=== PATIENT | female | born 1980 | race Caucasian/White ===

== ENCOUNTER 2024-06-30 15:06 | Emergency (ER) | payer BC ==
[~2024-06-30] VITALS: Ht 167.6 cm; Wt 87.7 kg
[2024-06-30 15:39] VITALS: TEMP 97.9
[2024-06-30 16:21] LABS: BASOPHILS # (AUTO) 0.1 X10'3 (0-0.2); EOSINOPHILS # (AUTO) 0.2 X10'3 (0-0.9); HEMATOCRIT 42.2 % (35.0-45.0); HEMOGLOBIN 14.6 g/dl (12.0-16.0); LYMPHOCYTES # (AUTO) 1.7 X10'3 (1.1-4.8); LYMPHOCYTES % (AUTO) 16.1 % (21-51); MEAN CORPUSCULAR HEMOGLOBIN 29.4 PG (27.0-31.0); MEAN CORPUSCULAR HGB CONC 34.6 g/dL (33.0-36.5); MEAN CORPUSCULAR VOLUME 84.9 FL (78-98); MEAN PLATELET VOLUME 6.9 FL (7.4-10.4); MONOCYTES # (AUTO) 0.6 X10'3 (0-0.9); MONOCYTES % (AUTO) 5.5 % (2-12); NEUTROPHILS # (AUTO) 7.9 X10'3 (1.8-7.7); NEUTROPHILS % (AUTO) 75.4 % (42-75); PLATELET COUNT 346 X10'3 (140-440); RED BLOOD COUNT 4.98 X10'6 (4.20-5.60); RED CELL DISTRIBUTION WIDTH 12.7 % (11.5-14.5); WHITE BLOOD COUNT 10.4 X10'3 (4.5-11.0)
[2024-06-30 16:38] LABS: ALANINE AMINOTRANSFERASE 85 U/L (12-78); ALBUMIN/GLOBULIN RATIO 1.1 (1.1-1.5); ALKALINE PHOSPHATASE 209 IU/L (46-116); ANION GAP 5 (8-16); ASPARTATE AMINO TRANSFERASE 109 U/L (10-37); BILIRUBIN,TOTAL 0.9 MG/DL (0.1-1.0); BLOOD UREA NITROGEN 12 MG/DL (7-18); BUN/CREATININE RATIO 17.9 (10.0-20.0); CALCIUM 8.9 MG/DL (8.5-10.1); CHLORIDE 101 MMOL/L (99-107); CREATININE 0.67 MG/DL (0.40-0.90); GLUCOSE 146 MG/DL (70-104); LIPASE 50 U/L (16-77); SODIUM 138 MMOL/L (135-145); TOTAL CARBON DIOXIDE 31.6 MMOL/L (24-32); TOTAL PROTEIN 7.7 G/DL (6.4-8.2); eCRCL 102 ML/MIN; eGFR > 90 ML/MIN
[2024-06-30 16:59] LABS: BILIRUBIN,URINE NEGATIVE (Neg); CLARITY,URINE CLEAR (Clear); COLOR,URINE YELLOW (Yellow); GLUCOSE, URINE NEGATIVE (Neg); KETONES,URINE NEGATIVE (Neg); LEUKOCYTE ESTERASE ,URINE TRACE (Neg); NITRITES, URINE NEGATIVE (Neg); OCCULT BLOOD,URINE NEGATIVE (Neg); PROTEIN,URINE NEGATIVE (Neg); UROBILINOGEN,URINE 0.2 E.U/dL (0.2-1.0)
[2024-06-30 17:06] LABS: UA COLLECTION TYPE NON-SPECIFIED
[2024-06-30 17:07] LABS: BACTERIA,URINE FEW /HPF (Neg); MUCUS STRANDS MANY /LPF (Neg); SQUAMOUS EPITHELIAL CELL,UR MANY /LPF (FEW); WBC,URINE 0-4 /HPF (0-4)
[2024-06-30 17:38] VITALS: BP 131/78; PULSE 92; RESP 18; O2SAT 98
== END 2024-06-30 17:40 | disposition home or self-care (01) ==
LOC: ER 15:07
DX: K80.20 Calculus of gallbladder without cholecystitis without obstruction (principal)
CPT/HCPCS: 36415; 76700; 80053; 81001; 83690; 85025; 99284

== ENCOUNTER 2024-07-03 20:13 | Inpatient (IN) | payer BC ==
[~2024-07-03] VITALS: Ht 198.1 cm; Wt 85.0 kg
[2024-07-03 21:11] LABS: BASOPHILS # (AUTO) 0.1 X10'3 (0-0.2); BASOPHILS % (AUTO) 0.7 % (0-1); EOSINOPHILS # (AUTO) 0.2 X10'3 (0-0.9); EOSINOPHILS % (AUTO) 3.2 % (0-6); HEMATOCRIT 41.6 % (35.0-45.0); HEMOGLOBIN 14.5 g/dl (12.0-16.0); LYMPHOCYTES # (AUTO) 1.6 X10'3 (1.1-4.8); LYMPHOCYTES % (AUTO) 20.8 % (21-51); MEAN CORPUSCULAR HEMOGLOBIN 29.4 PG (27.0-31.0); MEAN CORPUSCULAR HGB CONC 34.9 g/dL (33.0-36.5); MEAN CORPUSCULAR VOLUME 84.2 FL (78-98); MEAN PLATELET VOLUME 7.3 FL (7.4-10.4); MONOCYTES # (AUTO) 0.5 X10'3 (0-0.9); MONOCYTES % (AUTO) 7.1 % (2-12); NEUTROPHILS # (AUTO) 5.1 X10'3 (1.8-7.7); NEUTROPHILS % (AUTO) 68.2 % (42-75); PLATELET COUNT 328 X10'3 (140-440); RED BLOOD COUNT 4.94 X10'6 (4.20-5.60); RED CELL DISTRIBUTION WIDTH 12.7 % (11.5-14.5); WHITE BLOOD COUNT 7.5 X10'3 (4.5-11.0)
[2024-07-03 21:29] LABS: BILIRUBIN,URINE MODERATE (Neg); CLARITY,URINE SLIGHTLY CLOUDY (Clear); COLOR,URINE YELLOW (Yellow); GLUCOSE, URINE NEGATIVE (Neg); KETONES,URINE TRACE mg/dl (Neg); LEUKOCYTE ESTERASE ,URINE NEGATIVE (Neg); NITRITES, URINE NEGATIVE (Neg); OCCULT BLOOD,URINE NEGATIVE (Neg); PROTEIN,URINE NEGATIVE (Neg)
[2024-07-03 21:30] LABS: UA COLLECTION TYPE CLN CATCH MIDSTREAM
[2024-07-03 21:32] LABS: URINE HCG NEGATIVE (NEG)
[2024-07-03 21:33] LABS: ALANINE AMINOTRANSFERASE 451 U/L (12-78); ALBUMIN 3.8 G/DL (3.4-5.0); ALKALINE PHOSPHATASE 314 IU/L (46-116); ANION GAP 9 (8-16); ASPARTATE AMINO TRANSFERASE 231 U/L (10-37); BILIRUBIN,TOTAL 2.3 MG/DL (0.1-1.0); BLOOD UREA NITROGEN 10 MG/DL (7-18); BUN/CREATININE RATIO 14.9 (10.0-20.0); CALCIUM 9.1 MG/DL (8.5-10.1); CHLORIDE 103 MMOL/L (99-107); CREATININE 0.67 MG/DL (0.40-0.90); GLUCOSE 138 MG/DL (70-104); LIPASE 34 U/L (16-77); POTASSIUM 3.8 MMOL/L (3.5-5.1); SODIUM 138 MMOL/L (135-145); TOTAL CARBON DIOXIDE 26.3 MMOL/L (24-32); TOTAL PROTEIN 7.6 G/DL (6.4-8.2); eCRCL 102 ML/MIN; eGFR > 90 ML/MIN
[2024-07-03 21:35] LABS: BACTERIA,URINE 2+ /HPF (Neg); CAL OXALATE CRYSTALS FEW /HPF (NEGATIVE); RBC,URINE NONE SEEN /HPF (0-2); SQUAMOUS EPITHELIAL CELL,UR MODERATE /LPF (FEW); WBC,URINE 0-4 /HPF (0-4)
[2024-07-03] MEDS ORDERED: morphine 4 MG/ML inj SYRINge IV ONE (22:15)
[2024-07-03] MEDS ORDERED: potassium Cl 20 mEq SR tablet PO PRN ×2 (22:40)
[2024-07-03] MEDS ORDERED: morphine 2 MG/ML inj. syringe IV PRN ×2 (22:40)
[2024-07-03] MEDS ORDERED: acetaminophen 325mg tablet PO PRN (22:40)
[2024-07-03] MEDS ORDERED: magnesium Cl slow-release 64mg tablet PO PRN (22:40)
[2024-07-03] MEDS ORDERED: bisacodyl 10mg suppository rectal RC PRN (22:40)
[2024-07-03] MEDS ORDERED: magnesium sulf-water 4G/100mL 100 ML IV PRN (22:40)
[2024-07-03] MEDS ORDERED: magnesium sulf-water 2g/50mL 50 ML IV PRN (22:40)
[2024-07-03] MEDS ORDERED: HYDROmorphone inj. 0.5 MG/0.5 ML DISP.SYRIN IV PRN (22:40)
[2024-07-03] MEDS ORDERED: potassium Cl 40MEQ/1/2NS 520ml 520 ML IV PRN (22:40)
[2024-07-03] MEDS ORDERED: magnesium hydroxide 30ml (MOM) UD suspension PO PRN (22:40)
[2024-07-03] MEDS ORDERED: mag hydrox/Alum hydrox/simeth 30ml oral suspension PO PRN (22:40)
[2024-07-03 23:03] LABS: APTT 23 SECONDS (22-32); PROTHROMBIN TIME 10.3 SECONDS (9.0-12.0)
[2024-07-03 23:11] LABS: PRO BRAIN NATRIURETIC PEPTIDE 62 PG/ML (0-125)
[2024-07-03] MEDS: normal saline 1000ml 1,000 ML IV ONE (23:23)
[2024-07-03] MEDS: ondansetron/PF 4mg/2ml inj IV ONE (23:29)
[2024-07-03] MEDS: ketorolac trometh 15mg/ml vial 15 MG/ML ML IV ONE (23:32)
[2024-07-03] MEDS: piperacillin/tazo 3.375gm/50ml 50 ML IV ONE (23:34)
[2024-07-04] VITALS (20 sets, daily range): BP systolic 110–145; BP diastolic 62–89; PULSE 57–88; RESP 12–18; TEMP 97.4–98.9; O2SAT 94–99
[2024-07-04] MEDS: normal saline 1000ml 1,000 ML IV SCH (01:50)
[2024-07-04 04:56] LABS: BASOPHILS % (AUTO) 0.9 % (0-1); EOSINOPHILS # (AUTO) 0.3 X10'3 (0-0.9); HEMATOCRIT 40.8 % (35.0-45.0); HEMOGLOBIN 13.8 g/dl (12.0-16.0); LYMPHOCYTES # (AUTO) 1.6 X10'3 (1.1-4.8); MEAN CORPUSCULAR HEMOGLOBIN 28.8 PG (27.0-31.0); MEAN CORPUSCULAR HGB CONC 33.8 g/dL (33.0-36.5); MEAN CORPUSCULAR VOLUME 85.1 FL (78-98); MEAN PLATELET VOLUME 7.3 FL (7.4-10.4); MONOCYTES # (AUTO) 0.5 X10'3 (0-0.9); MONOCYTES % (AUTO) 8.7 % (2-12); NEUTROPHILS # (AUTO) 3.1 X10'3 (1.8-7.7); NEUTROPHILS % (AUTO) 56.4 % (42-75); PLATELET COUNT 302 X10'3 (140-440); RED BLOOD COUNT 4.79 X10'6 (4.20-5.60); RED CELL DISTRIBUTION WIDTH 12.8 % (11.5-14.5); WHITE BLOOD COUNT 5.4 X10'3 (4.5-11.0)
[2024-07-04 05:22] LABS: ALANINE AMINOTRANSFERASE 448 U/L (12-78); ALBUMIN 3.3 G/DL (3.4-5.0); ALKALINE PHOSPHATASE 286 IU/L (46-116); ANION GAP 7 (8-16); ASPARTATE AMINO TRANSFERASE 233 U/L (10-37); BILIRUBIN,TOTAL 2.8 MG/DL (0.1-1.0); BLOOD UREA NITROGEN 9 MG/DL (7-18); BUN/CREATININE RATIO 12.7 (10.0-20.0); CALCIUM 8.3 MG/DL (8.5-10.1); CHLORIDE 106 MMOL/L (99-107); CHOL/HDL RATIO 2.8 (0.00-4.99); CHOLESTEROL 174 MG/DL (0-200); CREATININE 0.71 MG/DL (0.40-0.90); GLUCOSE 111 MG/DL (70-104); HDL CHOLESTEROL 62 MG/DL (35-60); LDL CHOLESTEROL 94 MG/DL (50-100); MAGNESIUM 1.8 MG/DL (1.5-2.4); POTASSIUM 3.8 MMOL/L (3.5-5.1); SODIUM 141 MMOL/L (135-145); TOTAL CARBON DIOXIDE 28.5 MMOL/L (24-32); TOTAL PROTEIN 6.7 G/DL (6.4-8.2); TRIGLYCERIDES 69 MG/DL (20-135); eCRCL 97 ML/MIN; eGFR 90 ML/MIN
[2024-07-04] MEDS: piperacillin/tazo 3.375gm/50ml 50 ML IV SCH (06:20)
[2024-07-04] MEDS: docusate sod 100mg capsule PO SCH (08:00)
[2024-07-04] MEDS: K and/or MAG REPLACEMENT MC SCH (08:00)
[2024-07-04] MEDS: enoxaparin 40mg/0.4ml syringe SUBCUT SCH (08:00)
[2024-07-04] MEDS ORDERED: BUPIVAcaine 2.5mg/ml inj 50ml vial (contains preservative) ONE (12:39)
[2024-07-04] MEDS ORDERED: LIDOcaine 1% 30ml preserv. free vial ONE (12:39)
[2024-07-04] MEDS: INDOCYANINE GREEN 25 MG/10 ML VIAL IV STA (12:49)
[2024-07-04] MEDS: acetaminophen 1,000mg/100ml IV 100 ML IV ONE (12:58)
[2024-07-04] MEDS: ketorolac trometh 30MG/ML vial 30 MG/ML VIAL IV ONE (12:59)
[2024-07-04] MEDS: ringers solution, lacted 1,000 ML IV SCH (13:05)
[2024-07-04] MEDS ORDERED: meperidine/PF 25mg/ml syringe IV PRN ×3 (13:05)
[2024-07-04] MEDS ORDERED: labetalol 20mg/4ml (5mg/ml) syringe IV PRN (13:05)
[2024-07-04] MEDS ORDERED: morphine 2 MG/ML inj. syringe IV PRN (13:05)
[2024-07-04] MEDS ORDERED: enalaprilat 1.25mg/ml 2ml vial IV PRN (13:05)
[2024-07-04] MEDS ORDERED: morphine 4 MG/ML inj SYRINge IV PRN (13:05)
[2024-07-04] MEDS ORDERED: proCHLORperazine 10 MG/2 ml inj IV PRN (13:05)
[2024-07-04] MEDS ORDERED: ondansetron/PF 4mg/2ml inj IV PRN (13:05)
[2024-07-04] MEDS ORDERED: sevoflurane 250ml liquid IH ONE (13:10)
[2024-07-04] MEDS: aprepitant 40mg capsule PO ONE ×2 (13:11)
[2024-07-04] MEDS ORDERED: propofol inj 20 ML IV ONE (13:12)
[2024-07-04] MEDS ORDERED: LIDOcaine 2% (20mg/ml) 5ml vial ONE (13:12)
[2024-07-04] MEDS ORDERED: fentaNYL /PF 50mcg/ml 5ml ampule ONE (13:12)
[2024-07-04] MEDS ORDERED: midazolam 1 mg/ML 2ml injection ONE (13:12)
[2024-07-04] MEDS ORDERED: rocuronium 10mg/ml inj IV ONE (13:32)
[2024-07-04] MEDS ORDERED: ondansetron/PF 4mg/2ml inj ONE (13:33)
[2024-07-04] MEDS: BUPIVAcaine/PF 2.5 mg/ml (0.25%) 30ml vial IJ ONE (14:29)
[2024-07-04] MEDS ORDERED: sugammadex 200mg/2ml injection IV ONE (14:46)
[2024-07-04] MEDS: ondansetron/PF 4mg/2ml inj IV PRN (15:24)
[2024-07-04] MEDS: acetaminophen 325mg tablet PO PRN (18:15)
[2024-07-05 04:49] LABS: BASOPHILS % (AUTO) 0.2 % (0-1); EOSINOPHILS % (AUTO) 0 % (0-6); HEMATOCRIT 39.5 % (35.0-45.0); HEMOGLOBIN 13.5 g/dl (12.0-16.0); LYMPHOCYTES # (AUTO) 0.9 X10'3 (1.1-4.8); LYMPHOCYTES % (AUTO) 7.6 % (21-51); MEAN CORPUSCULAR HEMOGLOBIN 29.1 PG (27.0-31.0); MEAN CORPUSCULAR HGB CONC 34.2 g/dL (33.0-36.5); MEAN CORPUSCULAR VOLUME 85.1 FL (78-98); MEAN PLATELET VOLUME 7.2 FL (7.4-10.4); MONOCYTES # (AUTO) 0.6 X10'3 (0-0.9); MONOCYTES % (AUTO) 4.9 % (2-12); NEUTROPHILS # (AUTO) 10.8 X10'3 (1.8-7.7); NEUTROPHILS % (AUTO) 87.3 % (42-75); PLATELET COUNT 291 X10'3 (140-440); RED BLOOD COUNT 4.64 X10'6 (4.20-5.60); RED CELL DISTRIBUTION WIDTH 12.6 % (11.5-14.5); WHITE BLOOD COUNT 12.4 X10'3 (4.5-11.0)
[2024-07-05 05:03] LABS: ALANINE AMINOTRANSFERASE 304 U/L (12-78); ALBUMIN 2.9 G/DL (3.4-5.0); ALBUMIN/GLOBULIN RATIO 0.9 (1.1-1.5); ALKALINE PHOSPHATASE 254 IU/L (46-116); ANION GAP 7 (8-16); ASPARTATE AMINO TRANSFERASE 71 U/L (10-37); BILIRUBIN,TOTAL 0.7 MG/DL (0.1-1.0); BLOOD UREA NITROGEN 9 MG/DL (7-18); BUN/CREATININE RATIO 15.5 (10.0-20.0); CALCIUM 8.1 MG/DL (8.5-10.1); CHLORIDE 106 MMOL/L (99-107); CREATININE 0.58 MG/DL (0.40-0.90); GLUCOSE 163 MG/DL (70-104); MAGNESIUM 1.8 MG/DL (1.5-2.4); POTASSIUM 4.1 MMOL/L (3.5-5.1); SODIUM 139 MMOL/L (135-145); TOTAL CARBON DIOXIDE 25.9 MMOL/L (24-32); TOTAL PROTEIN 6.3 G/DL (6.4-8.2); eCRCL 170 ML/MIN; eGFR > 90 ML/MIN
[2024-07-05 06:00] VITALS: BP 124/74; PULSE 83; RESP 18; TEMP 97.5; O2SAT 96
[2024-07-05 10:00] VITALS: BP 137/97; PULSE 90; RESP 18; TEMP 98; O2SAT 100
== END 2024-07-05 14:30 | disposition home or self-care (01) | DRG 419 ==
LOC: ER 20:14 → ED HOLD 22:47 → UNDOADMIN 23:35 → ED HOLD 23:35 → SUR 3N 07-04 01:35 → ED HOLD 07-04 01:35
PROVIDERS: ADMIT Internal Medicine Critical Care Medicine; ATTEND Internal Medicine
PROC: 8E0W4CZ Robotic Assisted Procedure of Trunk Region, Percutaneous Endoscopic Approach (ICD-10-PCS; 2024-07-04)
PROC: BF121ZZ Fluoroscopy of Gallbladder using Low Osmolar Contrast (ICD-10-PCS; 2024-07-04)
PROC: 0FT44ZZ Resection of Gallbladder, Percutaneous Endoscopic Approach (ICD-10-PCS; principal; 2024-07-04 13:10)
DX: K80.62 Calculus of gallbladder and bile duct with acute cholecystitis without obstruction (principal); Z98.891 History of uterine scar from previous surgery; Z79.899 Other long term (current) drug therapy
CPT/HCPCS: 96365; 96375; 99285; Z7506; Z7508; 36415; 74181; 76700; 80053; 80061; 81001; 81025; 82948; 83690; 83735; 83880; 85025; 85610; 85730; 87081; A4215; A4615; A4618; A7000; G0378; J0131; J1100; J1650; J1885; J2003; J2250; J2405; J2543; J2704; J2710; J3010; J3490; J7030; J7120; J8501